=== PATIENT | male | born 1990 | race Caucasian/White ===

== ENCOUNTER 2020-07-21 00:09 | Inpatient (IN) | payer OTHER, MEDICAID ==
[~2020-07-21] VITALS: Ht 190.5 cm; Wt 102.0 kg
[2020-07-21] MEDS ORDERED: loperamide 2mg capsule PO PRN (10:05)
[2020-07-21] MEDS ORDERED: mag hydrox/Alum hydrox/simeth 30ml oral suspension PO PRN (10:05)
[2020-07-21] MEDS ORDERED: magnesium hydroxide 30ml (MOM) UD suspension PO PRN (10:05)
[2020-07-21] MEDS ORDERED: acetaminophen 325mg tablet PO PRN ×2 (10:05)
[2020-07-21] MEDS ORDERED: NICOTINE POLACRILEX 2 MG LOZENGE BC PRN (10:05)
[2020-07-21] MEDS ORDERED: NO HOME MEDS (10:09)
--- NOTE | 2020-07-21 12:20 | NUR ---
Admission note: Pt [facility] to [facility] today at 1136 on a 5150 for gravely disabled. Pt transferred from [facility] via ambulance. Pt brought in by parents due to not sleeping for 48 hours and bizarre behavior . Pt presents as tangential, disorganized thought process and speech. Pt unable to articulate self care plan. Pt has no history of psychiatric illness or medical issues. Pt does have history of binge drinking. Pt has had a lot of life stressors from work and girl friend.
[2020-07-21 12:30] VITALS: BP 133/89
[2020-07-21 19:26] VITALS: BP 134/87
--- NOTE | 2020-07-22 01:55 | NUR ---
Nursing Progress Note: Legal hold: 5150 Client on involuntary status for GD Report received from SHREE Paredes with use of SBAR. Why are they here: Pt admitted to [facility] today at 1136 on a 5150 for gravely disabled. Pt transferred from [facility] via ambulance. Pt brought in by parents due to not sleeping for 48 hours and bizarre behavior . Pt presents as tangential, disorganized thought process and speech. Pt unable to articulate self care plan. Pt has no history of psychiatric illness or medical issues. Pt does have history of binge drinking. Pt has had a lot of life stressors from work and girl friend. Assessment What has happened this shift: Pt kept to himself and read for the entire shift. Pt provided unnecessary details when relaying the reason for his admittance. He jumped around, making it somewhat difficult to follow. Pt states that he had just been feeling heightened sense of energy lately and that there are stressors in his life related to his siblings, and work but did not elaborate on this except to say he is wearing many hats in his current position, and that he is in the process of finding a new job where he is not inundated with additional work on top of his position requirements. Pt states he has a new girlfriend, and that it is going well and that he thinks she will be understanding of him being here. He shared a few stories of how they started dating. He states he has felt high energy in the past before but never to the extent that he couldnt sleep, and that he thinks it is related to ADHD. Pt currently lives with his parents and used to drink and go out with friends frequently but hasnt that much since he moved in with them in January. Pt did not allow this RN to respond much while he explained his reasoning for being here, and then when he was finished stated Well, I think that answers your question. I just need to get some sleep, and I wont be here for Trini. Pt understands the legal hold and is cooperative with care. S/I, H/I: Denies A/VH: Denies Sleep: See Sleep Assessment ADL's: Independent Group attendance: N/A Were meds taken: None ordered Any med S/E: N/A Mental Status Exam Behavior: Resting and reading in room Eye Contact: Good Speech: Clear, pressured intermittently, hyperverbal Mood: Good, Pt presents as anxious or hypomanic Affect: Animated Thought process: Circumstantial, Tangential Thought content: Relaying his reason for being here, Ensuring he will leave by [place] Cognition: A/Ox4 Insight: Fair Judgment: Fair Interventions: PRN's used: None Therapeutic interventions: 1:1 assessment, therapeutic communication, active listening, medication administration/education/monitoring, encouragement to develop/pursue coping mechanisms to distract from urges to self-harm, encouraged pt to attend groups, encouraged to come out of room more often, encouraged to eat meals, Q 15 minute safety checks. Restraints/seclusion/emergency medication: None Justification of Continued Inpatient Treatment: Requires interruption of current crisis, medication adjustments, and a safe and supportive environment to prevent readmission. Addendum: 07/22/20 at 0520 by Daiana Ordaz RN Pt awoke at 0500. States that is when he usually wakes. He was happy he was able to get sleep without any PRNs. Pt inquiring when he will be able to see a doctor then asked if anyone was from [employer] here because there is a satellite campus in [place]. When this RN asked if he was a part of the organization, he said "No, I would know who worked here that was a part of [employer]. That's how it works." His affect is bright. RN offered hot tea, pt accepted then asked to take a shower. Pt states he is constipated; offered MOM, suggested it's best top take at night but that he could have it anytime if he was uncomfortable. He states he feels okay for now.
[2020-07-22 10:35] LABS: HEMOGLOBIN A1C 4.9 % (4.5-6.2)
[2020-07-22 10:42] LABS: CHOLESTEROL 154 MG/DL (0-200); HDL CHOLESTEROL 52 MG/DL (35-60); LDL CHOLESTEROL 78 MG/DL (50-100); TRIGLYCERIDES 191 MG/DL (20-135)
--- NOTE | 2020-07-22 16:48 | NUR ---
Nursing Progress Note: Legal hold: 5150 Client on involuntary status for GD Report received RN with use of SBAR. Why are they here: Pt [facility] to [facility] today at 1136 on a 5150 for gravely disabled. Pt transferred from [facility] via ambulance. Pt brought in by parents due to not sleeping for 48 hours and bizarre behavior . Pt presents as tangential, disorganized thought process and speech. Pt unable to articulate self care plan. Pt has no history of psychiatric illness or medical issues. Pt does have history of binge drinking. Pt has had a lot of life stressors from work and girl friend. Assessment What has happened this shift: Received Pt awake in his room in no distress at beginning of shift. Pt cooperative with vitals; he had no scheduled medications and was guarded and sarcastic when asked questions during AM assessment. Pt is respectful of rules and cooperative , yet gurded and a bit paranoid stating I would tell you who I work for, but keiry already given you enough clues that you should know by now. Pt does not want to elaborate on statements he makes, and says I want to talk about that later, lets not do that now. Pt reports having a BM after stating he was constipated and took a shower in the afternoon. He is focused on when he is leaving and how he will get back home. S/I, H/I: Denies A/VH: Denies Sleep: None this shift ADL's: Independent Group attendance: N/A Were meds taken: None ordered Any med S/E: N/A Mental Status Exam Behavior: Resting and reading in room Eye Contact: Good Speech: Clear, pressured intermittently Mood: Pt appears calm, guarded Affect: Animated Thought process: Circumstantial, Tangential Thought content: Leaving and going home Cognition: A/Ox4 Insight: Fair Judgment: Fair Interventions: PRN's used: None Therapeutic interventions: 1:1 assessment, therapeutic communication, active listening, medication administration/education/monitoring, encouragement to develop/pursue coping mechanisms to distract from urges to self-harm, encouraged pt to attend groups, encouraged to come out of room more often, encouraged to eat meals, Q 15 minute safety checks. Restraints/seclusion/emergency medication: None Justification of Continued Inpatient Treatment: Requires interruption of current crisis, medication adjustments, and a safe and supportive environment to prevent readmission.
[2020-07-22] MEDS: traZODone 50mg tablet PO PRN ×2 (20:56→21:45)
[2020-07-22] MEDS: LORazepam 1 MG tablet PO PRN (22:36)
--- NOTE | 2020-07-22 23:50 | NUR ---
Nursing Progress Note: Legal hold: 5150 Client on involuntary status for GD Report received from SHREE Paredes with use of SBAR. Why are they here: Pt [facility] to [facility] today at 1136 on a 5150 for gravely disabled. Pt transferred from [facility] via ambulance. Pt brought in by parents due to not sleeping for 48 hours and bizarre behavior . Pt presents as tangential, disorganized thought process and speech. Pt unable to articulate self care plan. Pt has no history of psychiatric illness or medical issues. Pt does have history of binge drinking. Pt has had a lot of life stressors from work and girl friend. Assessment What has happened this shift: The patient was in his room. ARABELLA Gunn was getting his vitals when this nurse walked in. He was sitting on his bed, so this medical writer took the chair for 1:1. Started talking to him and asked some assessment questions. The patient did not want to answer questions, and he said, "I'd like you to leave my room," so that's what this medical writer did. later, he said to another nurse, "is this what you people do here, is ask questions?" She told him yes, that's what we do. The patient seemed to be really upset about this, and perseverated for hours to the extent of asking for Ativan to help calm down. He finally went to sleep. S/I, H/I: Denies A/VH: Denies Sleep: See Sleep Assessment ADL's: Independent Group attendance: N/A Were meds taken: None ordered Any med S/E: N/A Mental Status Exam Behavior: Tangential, anxious, bizarre bx. Eye Contact: Good Speech: Clear, pressured intermittently, hyperverbal Mood: Great, no worries, Pt presents as anxious Affect: Animated Thought process: Circumstantial, Tangential Thought content: Leaving by [place] Cognition: A/Ox4 Insight: Fair Judgment: Poor Interventions: PRN's used: Ativan Therapeutic interventions: 1:1 assessment, therapeutic communication, active listening, medication administration/education/monitoring, encouragement to develop/pursue coping mechanisms to distract from urges to self-harm, encouraged pt to attend groups, encouraged to come out of room more often, encouraged to eat meals, Q 15 minute safety checks. Restraints/seclusion/emergency medication: None Justification of Continued Inpatient Treatment: Requires interruption of current crisis, medication adjustments, and a safe and supportive environment to prevent readmission.
[2020-07-23] MEDS: LORazepam 1 MG tablet PO PRN ×2 (07:36→21:09)
[2020-07-23 07:56] VITALS: BP 131/90
[2020-07-23] MEDS: traZODone 50mg tablet PO PRN (21:09)
--- NOTE | 2020-07-23 23:54 | NUR ---
Nursing Progress Note: Legal hold: 5150 Client on involuntary status for GD Report received from SHREE Ceja with use of SBAR. Why are they here: Pt admitted to [facility] today at 1136 on a 5150 for gravely disabled. Pt transferred from [facility] via ambulance. Pt brought in by parents due to not sleeping for 48 hours and bizarre behavior . Pt presents as tangential, disorganized thought process and speech. Pt unable to articulate self care plan. Pt has no history of psychiatric illness or medical issues. Pt does have history of binge drinking. Pt has had a lot of life stressors from work and girl friend. Assessment What has happened this shift: The patient was seen at bedside for 1:1. He is much better tonight. The patient is cooperative and understanding of the process. He made no delusional or bizarre statements. He has learned that he needs to control his intake of marijuana, ease his stress another way, and sleep. He was friendly toward this senior grant writer, as opposed to last night. He denies SI/HI and AV/H, is not depressed or anxious, and does not appear at all psychotic. The patient insists he will be out before [place], and wishes to get on with his life. S/I, H/I: Denies A/VH: Denies Sleep: See Sleep Assessment ADL's: Independent Group attendance: N/A Were meds taken: None ordered Any med S/E: N/A Mental Status Exam Behavior: Cooperative, friendly. Eye Contact: Good Speech: Clear Mood: Upbeat Affect: Animated Thought process: Linear Thought content: Leaving by [place] Cognition: A/Ox4 Insight: Fair Judgment: Poor Interventions: PRN's used: Ativan, Trazodone Therapeutic interventions: 1:1 assessment, therapeutic communication, active listening, medication administration/education/monitoring, encouragement to develop/pursue coping mechanisms to distract from urges to self-harm, encouraged pt to attend groups, encouraged to come out of room more often, encouraged to eat meals, Q 15 minute safety checks. Restraints/seclusion/emergency medication: None Justification of Continued Inpatient Treatment: Requires interruption of current crisis, medication adjustments, and a safe and supportive environment to prevent readmission.
[2020-07-24 08:00] VITALS: BP 144/84
[2020-07-24] MEDS ORDERED: NICO-668 BC (10:55)
[2020-07-24] MEDS ORDERED: TRAZ-251 PO (10:55)
--- NOTE | 2020-07-24 12:47 | NUR ---
DISCHARGE NOTE: Patient was discharged from unit at 1215. Pt ambulated independently to lobby with REGULO Ceja. Pt's friend from [place] was there to pick him up. Pt was A&O x4. Pt left with all personal belongings. Discharge instructions were reviewed and pt verbalized understanding.
== END 2020-07-24 12:15 | disposition home or self-care (01) | DRG 885 ==
LOC: ADULT MH 11:55
PROVIDERS: ADMIT Psychiatry & Neurology Psychiatry; ATTEND Psychiatry & Neurology Psychiatry
DX: F30.9 Manic episode, unspecified (principal); F23 Brief psychotic disorder; F17.200 Nicotine dependence, unspecified, uncomplicated; F12.90 Cannabis use, unspecified, uncomplicated; R45.1 Restlessness and agitation; G47.00 Insomnia, unspecified; Z71.6 Tobacco abuse counseling
CPT/HCPCS: 36415; 80061; 83036; 84443; 87081